=== PATIENT | female | born 1935 | race Caucasian/White ===

== ENCOUNTER 2023-08-08 20:35 | Emergency (ER) | payer OTHER ==
[~2023-08-08] VITALS: Ht 149.9 cm; Wt 59.0 kg
[2023-08-08 21:25] LABS: Basophils # (auto) 0 10 ^3/uL (0-0.2); Basophils % (auto) 0.3 % (0.0-2.0); Eosinophils # (auto) 0.1 10 ^3/uL (0-0.8); Eosinophils % (auto) 1.2 % (0.0-7.0); Hematocrit 33.9 % (36.0-46.0); Hemoglobin 11.4 g/dL (12.2-16.2); Lymphocytes # (auto) 0.7 10 ^3/uL (0.4-5.4); Lymphocytes % (auto) 8.7 % (10.0-50.0); Mean Corpuscular Hemoglobin 31.2 pg (28.0-32.0); Mean Corpuscular Hgb Conc. 33.6 g/dL (32.0-36.0); Mean Corpuscular Volume 92.7 fL (80.0-100.0); Monocytes # (auto) 0.8 10 ^3/uL (0-1.3); Monocytes % (auto) 9.7 % (0.0-12.0); Neutrophils # (auto) 6.7 10 ^3/uL (1.6-8.6); Neutrophils % (auto) 80.1 % (37.0-80.0); Red Blood Cells 3.65 10^6/uL (4.0-5.20); Red Cell Distribution Width 13.2 % (11.8-14.3); White Blood Cell 8.3 10^3/uL (4.4-10.8)
[2023-08-08 21:45] LABS: Alanine Aminotransferase 48 U/L (7-40); Albumin 3.7 g/dL (3.2-4.8); Alkaline Phosphatase 85 U/L (46-116); Anion Gap 8 (5-15); Aspartate Aminotransferase 67 U/L (13-40); BUN/Creatinine Ratio 37.3 (10.0-20.0); Blood Urea Nitrogen 50 mg/dL (9-23); Calcium 10.2 mg/dL (8.5-10.1); Carbon Dioxide 22 mmol/L (20-30); Chloride 105 mmol/L (98-107); Glucose 102 mg/dL (74-106); Potassium 3.9 mmol/L (3.5-5.1); Sodium 135 mmol/L (136-145)
[2023-08-08 21:46] LABS: Bilirubin, Total 0.7 mg/dL (0.2-1.0); Total Protein 6.5 g/dL (5.7-8.2)
[2023-08-08 23:00] VITALS: PULSE 63; RESP 12; O2SAT 99
[2023-08-09] MEDS: ASPirin 81 mg TAB PO ONE (02:32)
[2023-08-09] MEDS: SODIUM CHLORIDE 0.9% 500 ML IV ONE (02:32)
[2023-08-09 03:47] LABS: Urine Bacteria FEW /hpf (None Seen); Urine Blood 1+ /uL (Negative); Urine Clarity Clear (Clear); Urine Color Light-Yellow (Yellow); Urine Protein, UAD TRACE (Negative); Urine Specific Gravity 1.013 (1.001-1.035); Urine Urobilinogen Normal (Negative); Urine WBC 3 /hpf (0 - 5)
[2023-08-09 08:00] VITALS: PULSE 62; RESP 14; O2SAT 97
[2023-08-09 09:14] VITALS: BP 116/41; PULSE 61; RESP 16; TEMP 97.9; O2SAT 99
[2023-08-09 09:19] LABS: COVID19 ANTIGEN SOFIA FIA NEGATIVE (NEGATIVE)
[2023-08-09 09:20] LABS: Rapid Influenza A Negative (Negative); Rapid Influenza B Negative (Negative)
== END 2023-08-09 09:33 | disposition short-term general hospital (02) ==
LOC: ER 20:35 → EDBD 20:35 → ER 08-09 09:33
DX: S01.01XA Laceration without foreign body of scalp, initial encounter (principal); S09.8XXA Other specified injuries of head, initial encounter; R94.31 Abnormal electrocardiogram [ECG] [EKG]; R79.89 Other specified abnormal findings of blood chemistry; J40 Bronchitis, not specified as acute or chronic; Z20.822 Contact with and (suspected) exposure to COVID-19; W18.09XA Striking against other object with subsequent fall, initial encounter; Y93.01 Activity, walking, marching and hiking; Y92.89 Other specified places as the place of occurrence of the external cause; Y99.8 Other external cause status
CPT/HCPCS: 36415; 70450; 70486; 71045; 72125; 80053; 81001; 82962; 83605; 83880; 84484; 85025; 87040; 87426; 87804; 93005; 96360; 99285; J7030

== ENCOUNTER 2023-11-12 14:55 | Inpatient (IN) | payer OTHER ==
[~2023-11-12] VITALS: Ht 154.9 cm; Wt 59.3 kg
[2023-11-12] MEDS: ONDANSETRON HCL 4 MG/2 ML VIAL IV ONE (15:36)
[2023-11-12] MEDS: MORPHINE SULFATE 4 MG/ML SYR/VIAL IV ONE ×2 (15:37→17:47)
[2023-11-12] MEDS: SODIUM CHLORIDE 0.9% 500 ML IV ONE (15:37)
[2023-11-12 15:45] VITALS: PULSE 72; RESP 12; O2SAT 98
[2023-11-12 15:58] LABS: Basophils # (auto) 0 10 ^3/uL (0-0.2); Basophils % (auto) 0.2 % (0.0-2.0); Eosinophils # (auto) 0.1 10 ^3/uL (0-0.8); Eosinophils % (auto) 0.9 % (0.0-7.0); Hematocrit 29.2 % (36.0-46.0); Hemoglobin 9.8 g/dL (12.2-16.2); Lymphocytes # (auto) 0.6 10 ^3/uL (0.4-5.4); Lymphocytes % (auto) 7.3 % (10.0-50.0); Mean Corpuscular Hemoglobin 32.4 pg (28.0-32.0); Mean Corpuscular Hgb Conc. 33.5 g/dL (32.0-36.0); Mean Corpuscular Volume 96.7 fL (80.0-100.0); Monocytes # (auto) 0.5 10 ^3/uL (0-1.3); Monocytes % (auto) 6.1 % (0.0-12.0); Neutrophils # (auto) 7.3 10 ^3/uL (1.6-8.6); Neutrophils % (auto) 85.5 % (37.0-80.0); Red Blood Cells 3.02 10^6/uL (4.0-5.20); Red Cell Distribution Width 13.4 % (11.8-14.3); White Blood Cell 8.5 10^3/uL (4.4-10.8)
[2023-11-12 16:08] LABS: Chloride 111 mmol/L (98-107); Potassium 4.6 mmol/L (3.5-5.1); Sodium 142 mmol/L (136-145)
[2023-11-12 16:09] LABS: Anion Gap 8 (5-15); Calcium 9.9 mg/dL (8.7-10.4); Carbon Dioxide 23 mmol/L (20-30)
[2023-11-12] MEDS ORDERED: QUET50TA PO (16:11)
[2023-11-12] MEDS ORDERED: FERR325T20 PO (16:11)
[2023-11-12] MEDS ORDERED: ATOR40TA52 PO (16:11)
[2023-11-12] MEDS ORDERED: MIDO5TAB22 PO (16:11)
[2023-11-12] MEDS ORDERED: LEVO25TA6 PO (16:11)
[2023-11-12 16:14] LABS: BUN/Creatinine Ratio 27.3 (10.0-20.0); Blood Urea Nitrogen 35 mg/dL (9-23); Glucose 123 mg/dL (74-106)
[2023-11-12 16:15] LABS: Urine Bacteria FEW /hpf (None Seen); Urine Blood TRACE /uL (Negative); Urine Clarity Turbid (Clear); Urine Color Light-Yellow (Yellow); Urine Mucus FEW (None Seen); Urine Protein, UAD 2+ (Negative); Urine Specific Gravity 1.015 (1.001-1.035); Urine Urobilinogen Normal (Negative); Urine WBC 18 /hpf (0 - 5); Urine pH 5.5 (5.0-9.0)
[2023-11-12 16:56] LABS: INR 1.02 (0.9-1.15); Partial Thromboplastin Time 23.8 SEC (24.5-34.5)
[2023-11-12] MEDS: MORPHINE SULFATE 4 MG/ML SYR/VIAL ONE (17:48)
[2023-11-12] MEDS ORDERED: HYDROcodone-ACET 5/325MG TAB PO PRN (19:15)
[2023-11-12] MEDS ORDERED: ONDANSETRON HCL 4 MG/2 ML VIAL IV PRN (19:15)
[2023-11-12] MEDS: LACTATED RINGER'S 1,000 ML IV ONE (19:15)
[2023-11-12 19:30] VITALS: PULSE 80; RESP 14; O2SAT 100
[2023-11-12] MEDS: ENOXAPARIN SOD 40 MG/0.4 ML SYRINGE SC ONE (19:54)
[2023-11-12] MEDS: HYDROmorphone HCL 2 MG/ML VL/or syr IV PRN (20:29)
[2023-11-12] MEDS: HYDROmorphone HCL 2 MG/ML VL/or syr IV ONE (20:29)
[2023-11-12] MEDS: LACTATED RINGER'S 1,000 ML IV SCH (21:12)
[2023-11-12] MEDS: SODIUM CHLOR 0.9% PF (SALINE LOCK) 10ML VIAL/SYR IV SCH (22:03)
[2023-11-12 22:20] LABS: Creatinine, Urine 59.28 mg/dL (30.0-125.0)
[2023-11-12 23:38] VITALS: PULSE 83; RESP 20; O2SAT 97
[2023-11-12 23:55] VITALS: BP 173/52; PULSE 83; RESP 20; TEMP 98; O2SAT 97
[2023-11-13] VITALS (10 sets, daily range): BP systolic 117–182; BP diastolic 33–63; PULSE 76–96; RESP 16–22; TEMP 98.1–98.5; O2SAT 96–100
[2023-11-13] MEDS ORDERED: HALOPERIDOL LACTATE 5 MG/ML INJ VIAL IM ONE (02:15)
[2023-11-13] MEDS ORDERED: HALOPERIDOL LACTATE 5 MG/ML INJ VIAL IM PRN (02:30)
[2023-11-13] MEDS ORDERED: DEXTROSE (50%) 50ML SYRG IV PRN (10:45)
[2023-11-13] MEDS ORDERED: MORPHINE SULFATE INJ 2 MG/ml SYRG IV PRN (10:45)
[2023-11-13] MEDS: cefTRIAXone 1GM/50ML D5W 50 ML IV ONE (11:45)
[2023-11-13] MEDS: HALOPERIDOL LACTATE 5 MG/ML INJ VIAL IM ONE (11:45)
[2023-11-13] MEDS: ACCU-CHEK COMFORT CURVE STRIP VI SCH (11:47)
[2023-11-13] MEDS: InsuLIN REG 1unit/0.01ml Soln (100units/ml) SC SCH (11:47)
[2023-11-13 13:30] LABS: Basophils # (auto) 0 10 ^3/uL (0-0.2); Basophils % (auto) 0.2 % (0.0-2.0); Eosinophils # (auto) 0 10 ^3/uL (0-0.8); Lymphocytes # (auto) 0.4 10 ^3/uL (0.4-5.4); Monocytes # (auto) 0.8 10 ^3/uL (0-1.3); Red Cell Distribution Width 13.1 % (11.8-14.3)
[2023-11-13 13:33] LABS: Lymphocytes % (auto) 4.5 % (10.0-50.0); Mean Corpuscular Volume 97.2 fL (80.0-100.0); Monocytes % (auto) 8.8 % (0.0-12.0); Neutrophils # (auto) 7.9 10 ^3/uL (1.6-8.6); Neutrophils % (auto) 86.5 % (37.0-80.0); Red Blood Cells 2.05 10^6/uL (4.0-5.20); White Blood Cell 9.1 10^3/uL (4.4-10.8)
[2023-11-13] MEDS: LORazepam 2MG/ML-1ML VIAL IV PRN (13:33)
[2023-11-13 13:52] LABS: Hemoglobin 6.8 g/dL (12.2-16.2)
[2023-11-13 14:14] LABS: Platelet Estimate Decreased
[2023-11-13 14:17] LABS: Alanine Aminotransferase 14 U/L (7-40); Albumin 3.3 g/dL (3.2-4.8); Alkaline Phosphatase 60 U/L (46-116); Anion Gap 7 (5-15); Aspartate Aminotransferase 25 U/L (13-40); BUN/Creatinine Ratio 24.4 (10.0-20.0); Bilirubin, Total 0.6 mg/dL (0.2-1.0); Blood Urea Nitrogen 33 mg/dL (9-23); Calcium 8.9 mg/dL (8.7-10.4); Carbon Dioxide 23 mmol/L (20-30); Chloride 113 mmol/L (98-107); Glucose 144 mg/dL (74-106); Potassium 4.5 mmol/L (3.5-5.1); Sodium 143 mmol/L (136-145)
[2023-11-13 14:18] LABS: Total Protein 5.5 g/dL (5.7-8.2)
[2023-11-13] MEDS: hydrALAZINE HCL 20 MG/ML VL IV ONE ×2 (18:00→19:04)
[2023-11-13] MEDS: HALOPERIDOL LACTATE 5 MG/ML INJ VIAL IM PRN (20:54)
[2023-11-14] VITALS (12 sets, daily range): BP systolic 134–176; BP diastolic 41–65; PULSE 69–94; RESP 12–19; TEMP 97.2–98.8; O2SAT 96–100
[2023-11-14] MEDS ORDERED: MIDAZOLAM HCL 2MG/2ML 2ml VIAL (1mg/ml) ONE (07:05)
[2023-11-14] MEDS ORDERED: fentaNYL CITRATE 100 MCG/2 ML VL ONE (07:05)
[2023-11-14] MEDS ORDERED: BUPIVACAINE W/ EPINEPH 0.5% INJ 50ML MDV IJ ONE (07:07)
[2023-11-14] MEDS ORDERED: ceFAZolin 1GM/50ML 50 ML IV ONE (07:17)
[2023-11-14 07:30] LABS: Basophils # (auto) 0 10 ^3/uL (0-0.2); Basophils % (auto) 0.3 % (0.0-2.0); Eosinophils # (auto) 0 10 ^3/uL (0-0.8); Eosinophils % (auto) 0.1 % (0.0-7.0); Hematocrit 24.5 % (36.0-46.0); Hemoglobin 8.5 g/dL (12.2-16.2); Lymphocytes # (auto) 0.4 10 ^3/uL (0.4-5.4); Lymphocytes % (auto) 4.2 % (10.0-50.0); Mean Corpuscular Hgb Conc. 34.6 g/dL (32.0-36.0); Mean Corpuscular Volume 92.5 fL (80.0-100.0); Monocytes # (auto) 0.8 10 ^3/uL (0-1.3); Monocytes % (auto) 8.1 % (0.0-12.0); Neutrophils # (auto) 8.8 10 ^3/uL (1.6-8.6); Neutrophils % (auto) 87.3 % (37.0-80.0); Red Blood Cells 2.64 10^6/uL (4.0-5.20); Red Cell Distribution Width 15.8 % (11.8-14.3)
[2023-11-14 07:33] LABS: Alanine Aminotransferase 14 U/L (7-40); Albumin 3.6 g/dL (3.2-4.8); Alkaline Phosphatase 61 U/L (46-116); Anion Gap 7 (5-15); Aspartate Aminotransferase 27 U/L (13-40); BUN/Creatinine Ratio 25.5 (10.0-20.0); Bilirubin, Total 0.7 mg/dL (0.2-1.0); Blood Urea Nitrogen 27 mg/dL (9-23); Calcium 9.1 mg/dL (8.7-10.4); Carbon Dioxide 23 mmol/L (20-30); Chloride 115 mmol/L (98-107); Glucose 128 mg/dL (74-106); Potassium 4.2 mmol/L (3.5-5.1); Sodium 145 mmol/L (136-145); Total Protein 6.2 g/dL (5.7-8.2)
[2023-11-14] MEDS ORDERED: TRANEXAMIC ACID 20 ML ONE (08:29)
[2023-11-14] MEDS ORDERED: PHENYLEPHRINE HCL 10 MG/ML VL ONE (08:29)
[2023-11-14] MEDS ORDERED: LIDOCAINE 1% INJ PF 5ML AMP ONE (08:29)
[2023-11-14] MEDS ORDERED: EPINEPHrine HCL 1 MG/1 ML AMP ONE (08:29)
[2023-11-14] MEDS ORDERED: ePHEDrine SULFATE 50 MG/ML AMP ONE (08:31)
[2023-11-14] MEDS ORDERED: HYDROmorphone HCL 2 MG/ML VL/or syr IV PRN (09:45)
[2023-11-14] MEDS ORDERED: ONDANSETRON HCL 4 MG/2 ML VIAL IV ONE (09:45)
[2023-11-14] MEDS: cefTRIAXone 1GM/50ML D5W 50 ML IV SCH (11:59)
[2023-11-14] MEDS: D5W/SOD CHL 0.45%/KCL 20MEQ 1,000 ML IV SCH (12:26)
[2023-11-14] MEDS: hydrALAZINE HCL 20 MG/ML VL IV PRN (13:33)
[2023-11-15] VITALS (7 sets, daily range): BP systolic 142–165; BP diastolic 57–89; PULSE 74–90; RESP 16–19; TEMP 97.4–99.1; O2SAT 94–98
[2023-11-15 06:23] LABS: Basophils # (auto) 0 10 ^3/uL (0-0.2); Basophils % (auto) 0.1 % (0.0-2.0); Eosinophils # (auto) 0 10 ^3/uL (0-0.8); Hematocrit 27.3 % (36.0-46.0); Hemoglobin 9.4 g/dL (12.2-16.2); Lymphocytes # (auto) 0.5 10 ^3/uL (0.4-5.4); Lymphocytes % (auto) 4.3 % (10.0-50.0); Mean Corpuscular Hemoglobin 32.1 pg (28.0-32.0); Mean Corpuscular Hgb Conc. 34.4 g/dL (32.0-36.0); Mean Corpuscular Volume 93.4 fL (80.0-100.0); Monocytes # (auto) 1.1 10 ^3/uL (0-1.3); Neutrophils # (auto) 9.4 10 ^3/uL (1.6-8.6); Neutrophils % (auto) 85.6 % (37.0-80.0); Red Blood Cells 2.93 10^6/uL (4.0-5.20); Red Cell Distribution Width 15.5 % (11.8-14.3)
[2023-11-16] VITALS (7 sets, daily range): BP systolic 111–155; BP diastolic 47–71; PULSE 61–85; RESP 17–18; TEMP 97.9–99; O2SAT 96–98
[2023-11-16 12:30] LABS: Hematocrit 26.1 % (36.0-46.0); Hemoglobin 8.8 g/dL (12.2-16.2)
[2023-11-17 01:00] VITALS: BP 138/57; PULSE 78; RESP 18; TEMP 98.2; O2SAT 96
[2023-11-17 04:20] VITALS: BP 149/60; PULSE 88; RESP 18; TEMP 98.4; O2SAT 97
[2023-11-17 07:07] LABS: Basophils # (auto) 0 10 ^3/uL (0-0.2); Basophils % (auto) 0.1 % (0.0-2.0); Eosinophils # (auto) 0.3 10 ^3/uL (0-0.8); Hemoglobin 7.8 g/dL (12.2-16.2); Lymphocytes # (auto) 0.6 10 ^3/uL (0.4-5.4); Monocytes # (auto) 0.7 10 ^3/uL (0-1.3); Red Cell Distribution Width 14.8 % (11.8-14.3)
[2023-11-17 07:11] LABS: Hematocrit 23.1 % (36.0-46.0); Lymphocytes % (auto) 9.2 % (10.0-50.0); Mean Corpuscular Hemoglobin 31.6 pg (28.0-32.0); Mean Corpuscular Hgb Conc. 33.7 g/dL (32.0-36.0); Mean Corpuscular Volume 93.6 fL (80.0-100.0); Monocytes % (auto) 11.1 % (0.0-12.0); Neutrophils % (auto) 75.6 % (37.0-80.0); Red Blood Cells 2.47 10^6/uL (4.0-5.20); White Blood Cell 6.6 10^3/uL (4.4-10.8)
[2023-11-17 07:38] LABS: Alanine Aminotransferase 46 U/L (7-40); Alkaline Phosphatase 68 U/L (46-116); Anion Gap 6 (5-15); BUN/Creatinine Ratio 25.9 (10.0-20.0); Blood Urea Nitrogen 21 mg/dL (9-23); Calcium 8.3 mg/dL (8.7-10.4); Carbon Dioxide 21 mmol/L (20-30); Chloride 115 mmol/L (98-107); Glucose 104 mg/dL (74-106); Potassium 4.3 mmol/L (3.5-5.1); Sodium 142 mmol/L (136-145)
[2023-11-17 07:39] LABS: Aspartate Aminotransferase 81 U/L (13-40)
[2023-11-17 07:40] LABS: Albumin 2.8 g/dL (3.2-4.8); Total Protein 4.7 g/dL (5.7-8.2)
[2023-11-17 08:00] VITALS: O2SAT 98
[2023-11-17 08:46] VITALS: BP 138/52; PULSE 81; RESP 18; TEMP 98; O2SAT 98
[2023-11-17] MEDS: D5W/SOD CHL 0.45%/KCL 20MEQ 1,000 ML IV SCH (11:41)
[2023-11-17 13:00] VITALS: BP 146/52; PULSE 82; RESP 14; TEMP 99.1; O2SAT 94
[2023-11-17] MEDS: ACETAMINOPHEN 325 MG TAB PO PRN (16:39)
[2023-11-17 17:00] VITALS: BP 135/59; PULSE 74; RESP 16; TEMP 99; O2SAT 98
== END 2023-11-17 18:51 | disposition short-term general hospital (02) | DRG 480 ==
LOC: ER 14:55 → EDUNIT# 14:55 → EDBD 14:55 → OVERFLOW 19:13 → WEST WING 23:34
PROVIDERS: ADMIT Internal Medicine; ATTEND Internal Medicine
PROC: 30233N1 Transfusion of Nonautologous Red Blood Cells into Peripheral Vein, Percutaneous Approach (ICD-10-PCS; 2023-11-13)
PROC: 0QS604Z Reposition Right Upper Femur with Internal Fixation Device, Open Approach (ICD-10-PCS; principal; 2023-11-14 07:48)
DX: S72.21XA Displaced subtrochanteric fracture of right femur, initial encounter for closed fracture (principal); G92.8 Other toxic encephalopathy; N17.0 Acute kidney failure with tubular necrosis; N39.0 Urinary tract infection, site not specified; D64.9 Anemia, unspecified; E78.5 Hyperlipidemia, unspecified; E03.9 Hypothyroidism, unspecified; F03.90 Unspecified dementia, unspecified severity, without behavioral disturbance, psychotic disturbance, mood disturbance, and anxiety; I12.9 Hypertensive chronic kidney disease with stage 1 through stage 4 chronic kidney disease, or unspecified chronic kidney disease; B96.20 Unspecified Escherichia coli [E. coli] as the cause of diseases classified elsewhere; D69.6 Thrombocytopenia, unspecified; W01.0XXA Fall on same level from slipping, tripping and stumbling without subsequent striking against object, initial encounter; N18.9 Chronic kidney disease, unspecified; E11.22 Type 2 diabetes mellitus with diabetic chronic kidney disease; Z79.899 Other long term (current) drug therapy; Z86.73 Personal history of transient ischemic attack (TIA), and cerebral infarction without residual deficits; Y93.89 Activity, other specified; Y92.89 Other specified places as the place of occurrence of the external cause; Y99.8 Other external cause status
CPT/HCPCS: 36415; 71045; 73502; 76000; 80048; 80053; 81001; 82570; 82962; 83036; 84300; 84443; 85014; 85018; 85025; 85610; 85730; 86850; 86900; 86901; 86920; 87086; 87088; 87186; 93005; 93306; 96361; 96372; 96374; 96375; 96376; 97110; 97116; 97163; 97530; G0378; J0171; J1815; J2250; J2405